=== PATIENT | female | born 1935 | race Caucasian/White ===

== ENCOUNTER 2020-12-29 23:38 | Inpatient (IN) | payer OTHER, MEDICAID, SELFPAY ==
[~2020-12-29] VITALS: Ht 165.1 cm; Wt 79.4 kg
[2020-12-29 23:47] VITALS: BP 160/92
--- NOTE | 2020-12-29 23:47 | NUR ---
TO BED VIA WHEELCHAIR
--- NOTE | 2020-12-30 00:27 | NUR ---
PATIENT BIB FROM HOME C/O EPIGASTRIC PAIN THAT STARTED 5 HRS AGO. 10/10 PAIN RADIATING TO HER BACK FOR 5 HOURS THAT FEELS SHARP AND PRESSURE WITH CONSTANT PAIN. PATIENT WAS GIVEN ACID MONKEY TRAINER AND TOOK PAIN MEDICATIONS BUT PATIENT CANNOT RECALL WITH NO RELIEF. +N WITH NO ACTUAL VOMITING. DENIES SOB, FEVER, DIFFICULTY BREATHING, AND C/P. PATIENT DIMINISHED LUNG IN BILATERAL BASES. AAOX4. GCS15. pmh: dm, hysterectomy nka
[2020-12-30] MEDS ORDERED: MORPHINE SULFATE 4 MG/ML SYR IVP ONE (00:30)
[2020-12-30 02:42] LABS: HEMATOCRIT 45.9 % (36-48); HEMOGLOBIN 15.1 g/dL (12.0-16.0); MEAN CORPUSCULAR HEMOGLOBIN 31 pg (27-31); MEAN CORPUSCULAR HGB CONC 33 g/dL (33-37); MEAN CORPUSCULAR VOLUME 95.4 fL (80-94); PLATELET COUNT (AUTO) 154 K/uL (140-450); RED BLOOD CELL COUNT(AUTO) 4.82 MIL/uL (4.20-5.40); RED CELL DISTRIBUTION WIDTH 13.6 % (11.6-13.7); WHITE BLOOD COUNT (AUTO) 6.7 K/uL (4.8-10.8)
[2020-12-30 02:44] LABS: ALBUMIN 3.9 g/dL (3.4-5.0); ANION GAP 16.8 (8-16); ASPARTATE AMINOTRANSFERASE 227 U/L (15-37); CARBON DIOXIDE 24.4 mmol/L (21-32); CHLORIDE 102 mmol/L (98-107); CREATININE 0.9 mg/dL (0.6-1.3); GLUCOSE 171 mg/dL (74-106); POTASSIUM 3.2 mmol/L (3.5-5.1); SODIUM SERUM 140 mmol/L (136-145); TOTAL BILIRUBIN 2.5 mg/dL (0.0-1.0); UREA NITROGEN, BLOOD 12 mg/dL (7-18)
[2020-12-30 02:53] LABS: LYMPHOCYTES % (MANUAL) 2 % (20-46); MONOCYTES % (MANUAL) 1 % (5-12)
--- NOTE | 2020-12-30 03:27 | NUR ---
patient to [facility]
[2020-12-30] MEDS: POTASSIUM CHL 20 MEQ/NACL 0.9% 1,000 ML IV SCH ×2 (03:50→17:25)
[2020-12-30] MEDS ORDERED: metroNIDAZOLE 500 MG/NS PREMIX 100 ML IV SCH (04:50)
[2020-12-30] MEDS: NACL 0.9% 500 ML IV SCH ×5 (05:21→06:54)
--- NOTE | 2020-12-30 05:22 | NUR ---
0522- YARA CALLED TO ADMIT PT
[2020-12-30] MEDS ORDERED: cefTRIAXone 1,000 MG VIAL ONE (05:35)
[2020-12-30] MEDS ORDERED: DEXT 5% / NACL 0.9% 500 ML IV ONE (05:45)
[2020-12-30] MEDS ORDERED: MORPHINE SULFATE 2 MG/ML SYR IVP PRN ×2 (05:45→08:27)
--- NOTE | 2020-12-30 05:46 | NUR ---
patient admited med/surg hold 9
--- NOTE | 2020-12-30 07:06 | NUR ---
Pt report given to Martina CHONG. Transfer of care at this time.
--- NOTE | 2020-12-30 07:07 | NUR ---
REPORT RECEIVED FROM RUBI RN FOR CONTUNITY OF CARE
[2020-12-30] MEDS ORDERED: LORazepam 2 MG/ML VIAL IVP PRN (07:35)
[2020-12-30] MEDS ORDERED: MAG SULF 2000 MG/WATER PREMIX 50 ML IV PRN (07:35)
[2020-12-30] MEDS ORDERED: DOCUSATE SODIUM 100 MG GELCAP PO PRN (07:35)
--- NOTE | 2020-12-30 07:57 | NUR ---
PATIENT HAS BEEN SCREENED AND CATEGORIZED LOW NUTRITION RISK. PATIENT WILL BE SEEN WITHIN 7 DAYS OF ADMISSION. 01/03/[address]
--- NOTE | 2020-12-30 08:32 | NUR ---
Patient will be admitted to care of DR. LIVINGSTON. Admited to MED-SURG. Will go to room 110A. Belongings list completed. Report to ARLETTE BRUNSON. PT TAKEN TO ROOM 110A BY EMT LE
[2020-12-30] MEDS ORDERED: POTASSIUM CHLORIDE 40 MEQ, LIDOCAINE MPF 1% 25 MG in NACL 0.9% 250 ML IV SCH (10:00)
[2020-12-30] MEDS ORDERED: SEVOFLURANE 250 ML BTL INH ONE (10:45)
[2020-12-30] MEDS: PIPERACILLIN/TAZOBACTAM 3.375 GM in DEXTROSE 5% 50 ML IV SCH ×2 (11:45→18:25)
[2020-12-30 16:00] VITALS: BP 140/78
[2020-12-30] MEDS ORDERED: POTASSIUM CHL 20 MEQ/NACL 0.9% 1,000 ML IV ONE (17:03)
--- NOTE | 2020-12-30 19:25 | NUR ---
RECEIVED BEDSIDE REPORT FROM AM SHIFT RN. PT IS A&O X4, AMBULATORY, ON 2L NC. RT AC 20 G, SKIN INTACT, SAFETY MEASURES IN PLACE, CALL LIGHT WITHIN REACH. PT STABLE, WILL CONTINUE TO MONITOR.
--- NOTE | 2020-12-30 19:30 | NUR ---
GAVE REPORT TO NIGHT NURSE PT IS STABLE.
[2020-12-30 20:00] VITALS: BP 120/70
[2020-12-31] MEDS: PIPERACILLIN/TAZOBACTAM 3.375 GM in DEXTROSE 5% 50 ML IV SCH ×4 (00:27→18:03)
--- NOTE | 2020-12-31 00:27 | NUR ---
ADMINISTERED PTS SCHEDULED MED. INSERTED SECOND IV SITE ON THE RIGHT FOREARM 22G.
--- NOTE | 2020-12-31 03:30 | NUR ---
PT IS ASLEEP. NO SIGNS OF DISTRESS. SAFETY MEASURES IN PLACE. PT STABLE. WILL CONTINUE TO MONITOR.
[2020-12-31 04:00] VITALS: BP 117/83
--- NOTE | 2020-12-31 05:35 | NUR ---
PT AMBULATED TO THE BATHROOM. WANTED TO WASH HER HAIR, SO I PROVIDED SHAMPOO FOR HER. AMBULATED BACK TO BED. PT STABLE, NO SIGNS OF DISTRESS. PT STABLE. WILL CONTINUE TO MONITOR.
[2020-12-31 07:09] LABS: BASOPHILS % (AUTO) 0.3 % (0.0-2.0); EOSINOPHILS % (AUTO) 0.6 % (0.0-4.0); HEMATOCRIT 40.3 % (36-48); HEMOGLOBIN 13.3 g/dL (12.0-16.0); LYMPHOCYTES # (AUTO) 0.3 K/uL (2.5-16.5); LYMPHOCYTES % (AUTO) 4.7 % (20.5-51.1); MEAN CORPUSCULAR HEMOGLOBIN 31 pg (27-31); MEAN CORPUSCULAR HGB CONC 33 g/dL (33-37); MEAN CORPUSCULAR VOLUME 95.4 fL (80-94); MONOCYTES # (AUTO) 0.7 K/uL (0.8-1.0); MONOCYTES % (AUTO) 9.6 % (1.7-9.3); NEUTROPHILS # (AUTO) 5.9 K/uL (1.8-7.7); NEUTROPHILS % (AUTO) 84.8 % (42.2-75.2); PLATELET COUNT (AUTO) 130 K/uL (140-450); RED BLOOD CELL COUNT(AUTO) 4.22 MIL/uL (4.20-5.40); RED CELL DISTRIBUTION WIDTH 13.4 % (11.6-13.7)
[2020-12-31 07:33] LABS: ANION GAP 16.3 (8-16); CARBON DIOXIDE 23.5 mmol/L (21-32); CHLORIDE 107 mmol/L (98-107); CREATININE 0.8 mg/dL (0.6-1.3); GLUCOSE 115 mg/dL (74-106); POTASSIUM 3.8 mmol/L (3.5-5.1); SODIUM SERUM 143 mmol/L (136-145); UREA NITROGEN, BLOOD 10 mg/dL (7-18)
[2020-12-31 07:40] LABS: BILIRUBIN,DIRECT 4.1 mg/dL (0.0-0.3)
--- NOTE | 2020-12-31 07:44 | NUR ---
PASSED ON BEDSIDE REPORT TO AM SHIFT RN. PT STABLE.
[2020-12-31 08:00] VITALS: BP 137/83
--- NOTE | 2020-12-31 08:13 | NUR ---
REPORT RECEIVED FROM NIGHT NURSE PT IS ALERT ORIENTED X 4 VERBALLY RESPONSIVE DENIES PAIN AND DISCOMFORT. NO SOB NOTED AT THE MOMENT. PT CAME FOR ABDOMINAL PAIN NM HIDA GB WAS DONE YESTERDAY. PT IS ON LIQUID DIET. NASAL CANNULA ON 2 L. POC DISCUSSED WILL CONTINUE TO FOLLOW.
[2020-12-31] MEDS: ACETAMINOPHEN 325 MG TAB PO PRN (10:10)
[2020-12-31] MEDS: MORPHINE SULFATE 2 MG/ML SYR IVP PRN ×2 (16:56→20:59)
--- NOTE | 2020-12-31 19:25 | NUR ---
ENDORSED THE NIGHT NURSE FOR CONTINUITY OF CARE. PT IS STABLE.
--- NOTE | 2020-12-31 19:27 | NUR ---
RECEIVED BEDSIDE REPORT FROM AM SHIFT RN. PT ON 2L NC, SAFETY MEASURES IN PLACE, CALL LIGHT WITHIN REACH. SKIN IS INTACT. AMBULATORY WITH ASSISTANCE. PT STABLE. WILL CONTINUE TO MONITOR.
[2020-12-31 20:00] VITALS: BP 140/77
--- NOTE | 2020-12-31 20:10 | NUR ---
ASSISTED PT ON AMBULATING TO THE BATHROOM. MOBILITY IS SLIGHTLY LIMITED. NO SIGNS OF DISTRESS. WILL CONTINUE TO MONITOR.
--- NOTE | 2021-01-01 00:25 | NUR ---
PT TOOK OUT IV LINES THAT WERE PLACED. HER RATIONALE WAS THAT SHE NEEDED TO GO TO THE BATHROOM. PUT A NEW ONE IN ON THE RIGHT HAND 22G AND ADMINISTERED SCHEDULED MED. PT SEEMS A BIT DISORIENTATED. KEPT GETTING UP TO "CLEAN". ORIENTATED HER BACK TO BED. WILL CONTINUE TO MONITOR CLOSELY.
[2021-01-01] MEDS: PIPERACILLIN/TAZOBACTAM 3.375 GM in DEXTROSE 5% 50 ML IV SCH ×4 (00:45→17:47)
--- NOTE | 2021-01-01 02:05 | NUR ---
PATIENT IS ASLEEP. NO SIGNS OF DISTRESS. SAFETY MEASURES IN PLACE, ON 2L NC. PT STABLE. WILL CONTINUE TO MONITOR.
[2021-01-01 04:00] VITALS: BP 117/83
[2021-01-01 06:56] LABS: BASOPHILS % (AUTO) 0.3 % (0.0-2.0); EOSINOPHILS % (AUTO) 0.6 % (0.0-4.0); HEMOGLOBIN 13.2 g/dL (12.0-16.0); LYMPHOCYTES # (AUTO) 0.5 K/uL (2.5-16.5); LYMPHOCYTES % (AUTO) 6.9 % (20.5-51.1); MEAN CORPUSCULAR HEMOGLOBIN 31 pg (27-31); MEAN CORPUSCULAR HGB CONC 33 g/dL (33-37); MEAN CORPUSCULAR VOLUME 94.8 fL (80-94); MONOCYTES # (AUTO) 0.8 K/uL (0.8-1.0); MONOCYTES % (AUTO) 10.9 % (1.7-9.3); NEUTROPHILS % (AUTO) 81.3 % (42.2-75.2); PLATELET COUNT (AUTO) 143 K/uL (140-450); RED BLOOD CELL COUNT(AUTO) 4.22 MIL/uL (4.20-5.40); RED CELL DISTRIBUTION WIDTH 13.6 % (11.6-13.7); WHITE BLOOD COUNT (AUTO) 7.4 K/uL (4.8-10.8)
--- NOTE | 2021-01-01 07:10 | NUR ---
PASSED ON BEDSIDE ENDORSEMENT TO AM SHIFT RN . PT ALFONSO.
[2021-01-01 07:35] LABS: ANION GAP 14.8 (8-16); CARBON DIOXIDE 24.9 mmol/L (21-32); CHLORIDE 106 mmol/L (98-107); CREATININE 0.7 mg/dL (0.6-1.3); GLUCOSE 125 mg/dL (74-106); POTASSIUM 3.7 mmol/L (3.5-5.1); SODIUM SERUM 142 mmol/L (136-145); UREA NITROGEN, BLOOD 4 mg/dL (7-18)
[2021-01-01 08:00] VITALS: BP 152/67
[2021-01-01] MEDS ORDERED: LIDOCAINE 2% 100 MG/5 ML SYR IVP ONE (14:15)
[2021-01-01] MEDS ORDERED: PROPOFOL 200 MG/20 ML VIAL IV ONE (14:15)
--- NOTE | 2021-01-01 15:03 | NUR ---
DC PLANNING: PATIENT ADMITTED THROUGH THE ED WITH DIFFUSE ABDOMINAL PAIN. SHE IS CURRENTLY BEING WORKED UP FOR CHOLECYSTITIS AND IS HAVING AN ERCP TODAY. ON ZOSYN IV AND MORPHINE IV PRN, ABDOMINAL US SHOWED SUSPECTED STONES OR SLUDGE IN THE GALLBLADDER, LIVER ENZYMES ARE ALSO ELEVATED. SHADY RECEIVED A CALL FROM RADHA ([phone])SHADY FOR [facility], VERBAL REVIEW GIVEN, CLINICAL INFORMATION FAXED PER HIS REQUEST. CM WILL FOLLOW UP WITH THE PATIENT FOR DC PLANNING NEEDS. Addendum: 01/02/21 at 1053 by Kay Arriaza CM DC PLANNING: CM SPOKE WITH THE PATIENTS FOSTER ROSS BY PHONE REGARDING DC PLANNING. CM CONFIRMED THE PATIENTS ADDRESS AND PHONE NUMBER PER THE FACE SHEET.THE PATIENT LIVES WITH HER SON IN A SINGLE STORY [facility], AND IS INDEPENDENT IN ALL ACTIVITIES INCLUDING ADL'S. THE PATIENTS WALKS 3-4 MILES A DAY, AND EITHER WALKS OR TAKES THE BUS TO SHOP OR DO ERRANDS. SHE SEES HER PCP EVERY 3 MONTHS, AND HAS NO H/O DME USE OR HOME HEALTH. THE PATIENTS SON IS CURRENTLY IN REHAB AND PER CODY THE PATIENT WAS TAKING CARE OF HIM. THE PATIENT IS SCHEDULED FOR A LAP MOMO TODAY, DC PLAN IS FOR THE PATIENT TO GO TO HER GRANDSON CODY RUBIO, ADDRESS [id number]. CM WILL FOLLOW FOR NEEDS. Addendum: 01/02/21 at 1113 by Lizbeth Solis CM LATE ENTRY VISIT WITH PATIENT ON 01/01/2021 PATIENT IS AN 85-YEAR-OLD FEMALE ADMITTED ON A 12/30/2020 IN THE [facility] ED DUE TO ABDOMINAL PAIN THAT IS GOT WORSE AND PATIENT REPORTS THAT RADIATES TO HER BACK. SW MET WITH PATIENT AT BEDSIDE TO DISCUSS AND GATHER HER COLLATERAL INFORMATION. (PATIENT IS [place]ELAN SPEAKING ONLY). PATIENT REPORTED LIVING AT HER OWN HOME WITH HER SON SONIA HAMILTON TEMPORARILY HOWEVER; HER SON CODY HERNANDEZ IS HIS EMERGENCY CONTACT AND ASSIST HER WITH HER NEEDS. PER PATIENT SHE DO NOT HAVE AN EXISTING ADVANCE DIRECTIVE IN PLACE NOW HOWEVER; WAS INTERESTED ON GETTING INFORMATION AND A.D. PACKET PROVIDED BY [facility] AT TIME OF VISIT. PER PATIENT SHE WILL TALK TO HER FAMILY AND WILL PROBABLY HAVE HER GRANDSON CODY HERNANDEZ HER MEDICAL DECISION MAKER IN THE FUTURE. PATIENT REPORTED BEEN VERY ACTIVE AT HOME AND GOING TO WALKS TO THE PARK BY HER HOME AT LEAST 2X A WEEK. PATIENT REPORTED THAT SHE IS IN CONTACT AND FOLLOWS UP WITH HER PCP REGULARLY. HER [facility] WITH MD JOAN ALLEN. PATIENT REPORTED THAT SHE WILL MAKE AN APPOINTMENT SOON AFTER HER DC FROM [facility]. PATIENT REPORTED NOT HAVING ANY ISSUES GETTING OR TAKING HER MEDICATIONS PRESCRIBED BY HER MD. REPORTED BEEN INDEPENDENT AND MOBIL AND NOT NEEDING ANY DME AT HOME SHE IS INDEPENDENT AND SOME TIMES SHE STILL TAKES THE BUS. PATIENT REPORTED THAT SHE WILL BE RETURNING BACK HOME AFTER HER DISCHARGE FROM [facility] AND PROBABLY HER SON SONIA OR GRANDSON CODY WILL BE PICKING HER UP FROM [facility]. SW WILL FOLLOW UP NEEDED. Addendum: 01/02/21 at 1351 by Kay Arriaza CM DC PLANNING: SHADY SPOKE WITH SHADY GARCIA FROM [facility] [employer], VERBAL REVIEW GIVEN AND CLINICAL INFORMATION FAXED TO HIM. ENDORSED THAT THE PATIENT IS HAVING A LAP MOMO TODAY. CM WILL FOLLOW FOR NEEDS. Addendum: 01/04/21 at 1441 by Kay Arriaza CM DC PLANNING: SHADY SPOKE WITH RADHA FROM [employer], ENDORSED THAT HOME HEALTH HAS BEEN ORDERED. GIVEN OPTION OF [facility], PHONE [phone]. REFERRAL FAXED, AGENCY ABLE TO SEE THE PATIENTRADHA TO ISSUE AUTH NUMBER TO [employer]. SHADY ALSO SPOKE WITH THE PATIENTS FOSTER ROSS, CONFIRMED THAT THE PATIENT WILL DISCHARGE TO HIS RESIDENCE, CM CONFIRMED THE ADDRESS. DR WHITE IN AT 1420 TO DC THE СЕРГЕЙ DRAIN. CM WILL FOLLOW FOR NEEDS. Addendum: 01/05/21 at 1206 by Kay Arriaza CM DC PLANNING: CM RECEIVED ORDERS FOR HOME O2, SPOKE WITH SHADY SANCHEZ AT [facility], ASKED TO SEND REFERRAL TO THEIR CONTRACTED VENDOR [email or web address]. AUTH# FOR O2 PER [facility] IS [id number]. [facility] THAT THEY START SERVICE TOMORROW ([phone]), THEIR AUTH # IS [id number]. CM ALSO SPOKE WITH THE PATIENTS GRANDSON TO LET HIM KNOW THAT [email or web address] WILL CALL HIM WITH A DELIVERY TIME FOR CONCENTRATOR AND PORTABLE O2. CM WILL FOLLOW FOR NEEDS. Addendum: 01/05/21 at 1357 by Kay Arriaza CM DC PLANNING: CM RECEIVED A CALL FROM TABITHA AT [email or web address] ([phone]), THEY WILL DELIVER THE O2 CONCENTRATOR TO THE PATIENTS GRANDSONS HOME, AND THE PORTABLE O2 SET UP TO THE BEDSIDE. DELIVERY OF CONCENTRATOR WILL BE BETWEEN 4-8 PM AND PORTABLE O2 TO BEDSIDE BETWEEN 3-7. CM LET THE PATIENTS GRANDSON CODY KNOW ABOUT THE DELIVERY TIMES AND THE PATIENTS RN SUYAPA. CM WILL FOLLOW FOR NEEDS.
[2021-01-01] MEDS ORDERED: LACTATED RINGERS 1,000 ML IV SCH (15:25)
[2021-01-01] MEDS ORDERED: HYDROmorphone 1 MG/ML AMP IVP PRN (15:25)
[2021-01-01] MEDS ORDERED: MEPERIDINE 25 MG/ML SYR IVP PRN (15:25)
[2021-01-01] MEDS ORDERED: ONDANSETRON 4 MG/2 ML VIAL IVP PRN (15:25)
[2021-01-01] MEDS: MORPHINE SULFATE 2 MG/ML SYR IVP PRN (19:03)
[2021-01-01 20:00] VITALS: BP 145/82
--- NOTE | 2021-01-01 20:09 | NUR ---
0710 AM: PATIENT IS RESTING IN BED QUIETLY. NO ADDITIONAL DISTRESS NOTED. CALL LIGHT WITHIN REACH. BED IN LOW AND LOCK POSITION. STABLE CONDITION. NPO AT THIS TIME. WILL CONT TO MONITOR. 0800AM: EXPLAINED PLAN OF CARE AND PATIENT VERBALIZED UNDERSTANDING. PATIENT SPEAKS LITTLE ERITREAN BUT ABLE TO MAKE NEEDS KNOWN. WILL CONT TO MONITOR. 1000AM: PATIENT IS WATCHING TV. NO ADDITIONAL DISTRESS NOTED. MANOLO CALLED AND SPOKE WITH PATIENT AND EXPLAINED TO HER WHAT WAS GOING ON TODAY. WILL CONT TO MONITOR. 1200PM: PATIENT IS SITTING AT THE SIDE OF THE BED. NO ADDITIONAL DISTRESS NOTED. WAITING FOR ETA FOR ERCP TODAY. CONSENT RECEIVED FROM LOUISE ROSS FOR ERCP. WILL CONT TO MONITOR. 1400: PATIENT IS WATCHING TV. NO ADDITIONAL DISTRESS NOTED. WILL CONT TO MONITOR. 1415: LEFT THE UNIT IN A STABLE CONDITION FOR ERCP. 1545: RETURN FROM ERCP. AAOX4, ABLE TO MAKE NEEDS KNOWN. NO ADDITIONAL DISTRESS NOTED. VS 169/75, 65, 98.4 T, 02 SAT 94% 2LNC, 18 RESP. WILL CONT TO MONITOR. 1600: VS: 154/86, 18 RESP, 65 HR, 98.4 T, 02 SAT 94 2L NC. 1800: PATIENT IS SITTING AT THE SIDE OF THE BED EATING HER DINNER. DAUGHTER IN LAW AT THE BEDSIDE. NO ADDITIONAL DISTRESS NOTED. WILL CONT TO MONITOR. 1830: PATIENT IS BED SLOWLY EATING HER DINNER. NO ADDITIONAL DISTRESS NOTED. WILL CONT TO MONITOR. 1903: C/O ABD PAIN AFTER EATING 8/10 ACHING PAIN. GAVE MORPHINE ORDER PRN.
[2021-01-01] MEDS: ONDANSETRON 4 MG/2 ML VIAL IVP PRN (20:19)
[2021-01-02] MEDS: ZOLPIDEM 10 MG TAB PO PRN ×2 (00:05→23:20)
[2021-01-02] MEDS: PIPERACILLIN/TAZOBACTAM 3.375 GM in DEXTROSE 5% 50 ML IV SCH ×4 (00:05→23:20)
--- NOTE | 2021-01-02 01:56 | NUR ---
the patient is NPO after midnight for possible laparoscopic cholecystectomy. she complained of nausea and vomiting. zofran was given , she sleeps comfortable in his bed. safety and comfort measures were provided. bed is low position , pateint was assited to the bathroom three times.
[2021-01-02 05:13] VITALS: BP 125/78
[2021-01-02 08:00] VITALS: BP 168/80
[2021-01-02 09:02] LABS: BASOPHILS % (AUTO) 0.3 % (0.0-2.0); EOSINOPHILS % (AUTO) 0.6 % (0.0-4.0); HEMATOCRIT 43.9 % (36-48); HEMOGLOBIN 14.9 g/dL (12.0-16.0); LYMPHOCYTES # (AUTO) 0.8 K/uL (2.5-16.5); LYMPHOCYTES % (AUTO) 11.2 % (20.5-51.1); MEAN CORPUSCULAR HEMOGLOBIN 32 pg (27-31); MEAN CORPUSCULAR HGB CONC 34 g/dL (33-37); MONOCYTES # (AUTO) 0.8 K/uL (0.8-1.0); MONOCYTES % (AUTO) 10.3 % (1.7-9.3); NEUTROPHILS # (AUTO) 5.7 K/uL (1.8-7.7); NEUTROPHILS % (AUTO) 77.6 % (42.2-75.2); PLATELET COUNT (AUTO) 180 K/uL (140-450); RED BLOOD CELL COUNT(AUTO) 4.72 MIL/uL (4.20-5.40); RED CELL DISTRIBUTION WIDTH 13.3 % (11.6-13.7); WHITE BLOOD COUNT (AUTO) 7.4 K/uL (4.8-10.8)
[2021-01-02 09:22] LABS: ANION GAP 12.1 (8-16); CARBON DIOXIDE 29.2 mmol/L (21-32); CHLORIDE 103 mmol/L (98-107); CREATININE 0.7 mg/dL (0.6-1.3); GLUCOSE 94 mg/dL (74-106); POTASSIUM 3.3 mmol/L (3.5-5.1); SODIUM SERUM 141 mmol/L (136-145); UREA NITROGEN, BLOOD 8 mg/dL (7-18)
--- NOTE | 2021-01-02 10:37 | NUR ---
0710 am: PATIENT IS RESTING IN BED QUIETLY. NPO SINCE MIDNIGHT. NO ADDITIONAL DISTRESS NOTED. CALL LIGHT WITHIN REACH. BED IN LOW AND LOCK POSITION. STABLE CONDITION AT THIS TIME. WILL CONT TO MONITOR. 0800 AM: EXPLAINED PLAN OF CARE AND PATIENT VERBALIZED UNDERSTANDING. PATIENT DOES NOT SEEM HAPPY OF YESTERDAY. PER PATIENT, SHE THOUGHT SHE WAS GOING HOME TODAY. BUT SHE HAS TO STAY FOR THE SURGERY. PATIENT ASSUME THE ERCP WAS THE SURGERY ITSELF. NO ADDITIONAL DISTRESS NOTED. WILL CONT TO MONITOR. 0830AM: ASSIST PATIENT WITH AM CARE. CHG BATH AND BRUSHING HER TEETH. BED LINEN AND GOWN CHANGED. 1000AM: PATIENT IS TALKING IN THE PHONE. NO ADDITIONAL DISTRESS NOTED. WILL CONT TO MONITOR. ' 1037AM: LEFT THE UNIT IN A STABLE CONDITION. OR TRANSFER PATIENT.
[2021-01-02] MEDS ORDERED: SUCCINYLCHOLINE CHLORIDE 200 MG/10 ML VIAL IVP ONE (10:46)
[2021-01-02] MEDS ORDERED: fentaNYL citrate 0.05 MG/ML VIAL ONE (10:46)
[2021-01-02] MEDS ORDERED: PROPOFOL 200 MG/20 ML VIAL IV ONE (10:47)
[2021-01-02] MEDS ORDERED: BUPIVACAINE-MPF/EPI 0.25% 30 ML VIAL INJ ONE (10:48)
[2021-01-02] MEDS ORDERED: ONDANSETRON 4 MG/2 ML VIAL ONE (11:14)
[2021-01-02] MEDS ORDERED: ePHEDrine 50 MG/ML VIAL ONE (11:14)
[2021-01-02] MEDS ORDERED: DEXAMETHASONE 4 MG/ML VIAL ONE (11:15)
[2021-01-02] MEDS ORDERED: PIPERACILLIN/TAZOBACTAM 3.375 GM VIAL IV ONE (11:26)
[2021-01-02] MEDS ORDERED: MEPERIDINE 25 MG/ML SYR IVP PRN (11:35)
[2021-01-02] MEDS ORDERED: diphenhydrAMINE 50 MG/ML VIAL IVP PRN (11:35)
[2021-01-02] MEDS: LACTATED RINGERS 1,000 ML IV SCH ×2 (11:35→21:15)
[2021-01-02] MEDS ORDERED: ONDANSETRON 4 MG/2 ML VIAL IVP PRN (11:35)
[2021-01-02] MEDS ORDERED: SUGAMMADEX SODIUM 200 MG/2 ML VIAL IV ONE (12:10)
[2021-01-02] MEDS ORDERED: MEPERIDINE 25 MG/ML SYR ONE (12:21)
[2021-01-02] MEDS ORDERED: HYDROmorphone PFS 2 MG/ML SYR ONE (13:05)
[2021-01-02] MEDS: HYDROmorphone 1 MG/ML AMP IVP PRN ×3 (13:08→13:28)
[2021-01-02 13:50] VITALS: BP 160/84
[2021-01-02 14:00] VITALS: BP 157/84
[2021-01-02 15:00] VITALS: BP 146/81
[2021-01-02 15:22] LABS: BILIRUBIN,DIRECT 4.5 mg/dL (0.0-0.3); TOTAL BILIRUBIN 5.5 mg/dL (0.0-1.0)
--- NOTE | 2021-01-02 17:00 | NUR ---
1350: PATIENT RETURNED FROM PACU. AAOX4, ABLE TO MAKE NEEDS KNOWN. PAIN TO ABD /10. PER PACU THEY ALREADY GAVE HER PAIN MEDICATION. NO ADDITIONAL DISTRESS NOTED. 1 СЕРГЕЙ DRAIN TO THE RUQ AND X3 ABD SITE SEALED WITH DERMABOUND. SURGICAL SITE IS C/D/I/ NO DRAINAGE NOTED. F/C DRAINING TO GRAVITY. TEA COLOR URINE NOTED. VS 160/84 KIMBERLY, 75 HR, 17 RESP, 96.8T. 1400: 02 SAT 93% TO 4LNC. 02 SAT DROPS IN ROOM AIR AT 83%. NO SOB NOTED. VS: 157/84 KIMBERLY, 74 HR, 17 RESP, 96.8 T, 02 SAT 94% 4LNC. 1415: VS: 142/79 KIMBERLY, 75 HR, 17 RESP, 96.8 T, 02 SAT 94% 4LNC. 1430: VS: 151/78 KIMBERLY, 75 HR, 17 RESP, 96.8 T, 02 SAT 94% 4LNC. 1445: SON AT THE BEDSIDE. PATIENT IS RESTING IN BED QUIETLY. WILL CONT TO MONITOR. VS: 147/82 KIMBERLY, 73 HR, 17 RESP, 97.8 T, 02 SAT 94% 4LNC. 1500: VS: 146/81 KIMBERLY, 71 HR, 17 RESP, 97.8 T, 02 SAT 94% 4LNC. 1600: PATIENT IS RESTING IN BED TALKING IN THE PHONE. SON AT THE BEDSIDE ACCOMPANYING HER. WILL CONT TO MONITOR. 1630: SON LEFT THE BEDSIDE. 1700: PATIENT IS ASLEEP. STABLE CONDITION. WILL CONT TO MONITOR.
--- NOTE | 2021-01-02 18:45 | NUR ---
1800: LOUISE ROSS AT THE BEDSIDE. PATIENT IS EATING HER DINNER. TOLERATED AT THE THIS TIME. NO ADDITIONAL DISTRESS NOTED. WILL CONT TO MONITOR. 1845: СЕРГЕЙ#1 30 SANGENOUS. LOUISE ROSS STILL AT THE BEDSIDE. NO ADDITIONAL DISTRESS NOTED. STABLE CONDITION THROUGHOUT THE SHIFT. F/C DRAINING TO GRAVITY. WILL CONT TO MONITOR.
[2021-01-02] MEDS ORDERED: POTASSIUM CHLORIDE 10 MEQ TABER PO SCH (19:25)
[2021-01-02 20:00] VITALS: BP 139/81
[2021-01-03 04:40] VITALS: BP 142/78
[2021-01-03] MEDS: LACTATED RINGERS 1,000 ML IV SCH (04:40)
[2021-01-03] MEDS: PIPERACILLIN/TAZOBACTAM 3.375 GM in DEXTROSE 5% 50 ML IV SCH ×2 (06:24→11:22)
[2021-01-03 06:59] LABS: BASOPHILS % (AUTO) 0.2 % (0.0-2.0); EOSINOPHILS % (AUTO) 0.1 % (0.0-4.0); HEMATOCRIT 39.4 % (36-48); HEMOGLOBIN 13.3 g/dL (12.0-16.0); LYMPHOCYTES # (AUTO) 0.7 K/uL (2.5-16.5); LYMPHOCYTES % (AUTO) 7.5 % (20.5-51.1); MEAN CORPUSCULAR HEMOGLOBIN 31 pg (27-31); MEAN CORPUSCULAR HGB CONC 34 g/dL (33-37); MEAN CORPUSCULAR VOLUME 93.2 fL (80-94); MONOCYTES # (AUTO) 0.8 K/uL (0.8-1.0); MONOCYTES % (AUTO) 9.4 % (1.7-9.3); NEUTROPHILS # (AUTO) 7.3 K/uL (1.8-7.7); NEUTROPHILS % (AUTO) 82.8 % (42.2-75.2); PLATELET COUNT (AUTO) 189 K/uL (140-450); RED BLOOD CELL COUNT(AUTO) 4.23 MIL/uL (4.20-5.40); RED CELL DISTRIBUTION WIDTH 13.3 % (11.6-13.7); WHITE BLOOD COUNT (AUTO) 8.8 K/uL (4.8-10.8)
[2021-01-03 07:08] LABS: ALBUMIN 2.4 g/dL (3.4-5.0); ANION GAP 10.7 (8-16); ASPARTATE AMINOTRANSFERASE 122 U/L (15-37); CARBON DIOXIDE 29.1 mmol/L (21-32); CHLORIDE 103 mmol/L (98-107); CREATININE 0.6 mg/dL (0.6-1.3); GLUCOSE 107 mg/dL (74-106); POTASSIUM 3.8 mmol/L (3.5-5.1); SODIUM SERUM 139 mmol/L (136-145); TOTAL BILIRUBIN 3.3 mg/dL (0.0-1.0); UREA NITROGEN, BLOOD 11 mg/dL (7-18)
--- NOTE | 2021-01-03 07:30 | NUR ---
BEDSIDE REPORT RECEIVED FROM CIVIL DRAFTSMAN. PATIENT RESTING. ALL SAFETY MEASURE SIN PLACE.
--- NOTE | 2021-01-03 09:26 | NUR ---
PT ASSISTED WITH MEAL TRAY SET UP, PT TOLERATED WELL
[2021-01-03] MEDS: MORPHINE SULFATE 2 MG/ML SYR IVP PRN (09:56)
--- NOTE | 2021-01-03 09:59 | NUR ---
PATIENT COMPLAINS OF 10/ 10 PRN MEDICATION GIVEN PER MD ORDER. PT EDUCATED VERBALIZED UNDERSTANDING.
[2021-01-03] MEDS: ACETAMINOPHEN 325 MG TAB PO PRN (11:22)
[2021-01-03 12:00] VITALS: BP 165/83
--- NOTE | 2021-01-03 12:30 | NUR ---
MEDICATIONS GIVEN PER MD ORDER. PT EDUCATED , PT VERBALIZED UNDERSTANDING PT ABLE TO MAKE NEEDS KNOWN. CALL LIGHT WITHIN REACH ALL SAFETY MEASURES ARE IN PLACE.
--- NOTE | 2021-01-03 19:14 | NUR ---
PT SEEN AND ASSESSED. FOUND PT ON ROOM AIR WITH SPO2 IN 80s%. PLACED PT ON O2 AND TITRATED IT TO 4L WITH SPO2 92%. PT IS IN NO RESPIRATORY DISTRESS. WILL CONTINUE TO MONITOR PT.
[2021-01-04 01:27] VITALS: BP 146/81
--- NOTE | 2021-01-04 03:46 | NUR ---
the patient was assessed . she had episode of insomnia. Ambien was administered.she sleeps comfortable in her bed, breathing is even and unlabored . comfort and safety measures were provided.
[2021-01-04 07:17] LABS: BASOPHILS % (AUTO) 0.6 % (0.0-2.0); EOSINOPHILS # (AUTO) 0.1 K/uL (0-0.4); EOSINOPHILS % (AUTO) 1.2 % (0.0-4.0); HEMATOCRIT 40.4 % (36-48); HEMOGLOBIN 13.4 g/dL (12.0-16.0); LYMPHOCYTES # (AUTO) 0.8 K/uL (2.5-16.5); LYMPHOCYTES % (AUTO) 9.1 % (20.5-51.1); MEAN CORPUSCULAR HEMOGLOBIN 31 pg (27-31); MEAN CORPUSCULAR HGB CONC 33 g/dL (33-37); MEAN CORPUSCULAR VOLUME 93.9 fL (80-94); MONOCYTES # (AUTO) 0.8 K/uL (0.8-1.0); NEUTROPHILS # (AUTO) 6.9 K/uL (1.8-7.7); NEUTROPHILS % (AUTO) 80.1 % (42.2-75.2); PLATELET COUNT (AUTO) 217 K/uL (140-450); RED CELL DISTRIBUTION WIDTH 13.5 % (11.6-13.7); WHITE BLOOD COUNT (AUTO) 8.7 K/uL (4.8-10.8)
[2021-01-04 07:21] LABS: ALBUMIN 2.5 g/dL (3.4-5.0); ANION GAP 7.2 (8-16); ASPARTATE AMINOTRANSFERASE 86 U/L (15-37); CARBON DIOXIDE 31.7 mmol/L (21-32); CHLORIDE 104 mmol/L (98-107); CREATININE 0.7 mg/dL (0.6-1.3); GLUCOSE 98 mg/dL (74-106); SODIUM SERUM 140 mmol/L (136-145); TOTAL BILIRUBIN 2.4 mg/dL (0.0-1.0); UREA NITROGEN, BLOOD 8 mg/dL (7-18)
--- NOTE | 2021-01-04 07:30 | NUR ---
RECEIVED PATIENT CARE AND REPORT FROM [facility] NURSE. PATIENT RESTING HIGH FOWLERS IN BED. RESTING WITH EYES CLOSED. NO VISIBLE S/S OF DISTRESS, SOB, PAIN OR DISCOMFORT. ALL NEEDS HAVE BEEN MET AT THIS TIME.
[2021-01-04 07:39] LABS: POTASSIUM 2.9 mmol/L (3.5-5.1)
[2021-01-04] MEDS: POTASSIUM CHLORIDE 10 MEQ TABER PO PRN ×2 (09:05→13:17)
[2021-01-04] MEDS: MORPHINE SULFATE 2 MG/ML SYR IVP PRN (09:55)
[2021-01-04] MEDS: ONDANSETRON 4 MG/2 ML VIAL IVP PRN (10:00)
--- NOTE | 2021-01-04 13:17 | NUR ---
SPOKE WITH DR. LIVINGSTON. PATIENT POTASSIUM 2.9 WITH AM LABS. STATED TO GIVE KDUR 40MEQ IN THE MORNING AND AT 1200 FOR A TOTAL OF 80MEQ FOR THE DAY.
--- NOTE | 2021-01-04 14:10 | NUR ---
RIGHT SIDE СЕРГЕЙ DRAIN REMOVED BY SURGEON. 30ML OF SEROSANGUINOUS FLUID. SKIN AT SITE INTACT WITHOUT SWELLING, HEAT OR REDNESS.
[2021-01-04] MEDS: amLODIPine 5 MG TAB PO SCH (14:29)
[2021-01-04] MEDS ORDERED: DOCU-299 PO (14:34)
[2021-01-04] MEDS ORDERED: AMLO-3 PO (14:34)
[2021-01-04] MEDS ORDERED: ACET-9527 PO (14:38)
--- NOTE | 2021-01-04 17:07 | NUR ---
PATIENT HAS DISCHARGE ORDER. HOWEVER, O2 SATURATION BETWEEN 85-88% ON ROOM AIR. ON 6L/MIN VIA NASAL CANNULA, O2 SATURATION 92-94%. CONTACTED YUMIKO RN DISEASE MANAGEMENT TO INFORM. WILL INFORM DOCTOR AND FOSTER ROSS.
--- NOTE | 2021-01-04 17:15 | NUR ---
CALLED FOSTER ROSS AND INFORMED ABOUT HOLD ON DISCHARGE.
--- NOTE | 2021-01-04 19:16 | NUR ---
RECEIVED BEDSIDE REPORT FROM AM SHIFT RN. PT IS A&O X3, NO IV FLUIDS RUNNING AT THE MOMENT. PT HAS A RIGHT HAND 20G. SKIN IS INTACT. ON 5L NC, O2 SAT 94% CURRENTLY. SAFETY MEASURES IN PLACE, CALL LIGHT WITHIN REACH. PT STABLE. WILL CONTINUE TO MONITOR.
--- NOTE | 2021-01-04 19:56 | NUR ---
PT SEEN AND ASSESSED. FOUND PT ON 6L NASAL CANNULA WITH SPO2 OF 92%. PT IS IN NO RESPIRATORY DISTRESS AT THIS TIME. WILL CONTINUE TO MONITOR PT.
[2021-01-04 20:00] VITALS: BP 128/72
--- NOTE | 2021-01-05 00:10 | NUR ---
PROVIDED INCENTIVE SPIROMETER AT BEDSIDE. EDUCATED PATIENT ON HOW TO USE INCENTIVE SPIROMETER AND ALSO EDUCATED THAT THIS WILL OPEN UP THE LUNGS TO HELP BREATH MORE EFFECTIVELY
[2021-01-05] MEDS: ZOLPIDEM 10 MG TAB PO PRN (00:24)
--- NOTE | 2021-01-05 00:24 | NUR ---
PT STATED SHE HAS A HARD TIME SLEEPING. PROVIDED RENATA RODRIGUEZ.
--- NOTE | 2021-01-05 02:31 | NUR ---
PATIENT IS ASLEEP, NO SIGNS OF DISTRESS, OBSERVATION OF CHEST RISE AND FALL. SAFETY MEASURES IN PLACE. PT STABLE. WILL CONTINUE TO MONITOR
[2021-01-05 04:00] VITALS: BP 120/79
--- NOTE | 2021-01-05 07:30 | NUR ---
Received report from pm nurse. Patient resting in bed, respirations even & nonlabored on O2 @ 5L/min via n/c. IV to right hand 20G intact and asymptomatic, saline lock. Bed alarm on.
--- NOTE | 2021-01-05 07:36 | NUR ---
PASSED ON BEDSIDE REPORT TO AM SHIFT RN. PT STABLE
[2021-01-05 08:00] VITALS: BP 115/79
--- NOTE | 2021-01-05 08:22 | NUR ---
Received call from Eliseo Jalloh from [facility] [phone] inquiring of patient's discharge plan. Informed Eliseo that patient requires home O2. Will notify hospital case management director to coordinate with Eliseo recinos: discharge needs.
[2021-01-05] MEDS: amLODIPine 5 MG TAB PO SCH (09:04)
--- NOTE | 2021-01-05 09:30 | NUR ---
PLACED PT ON ROOM AIR, SPO2 86%. Addendum: 01/05/21 at 0953 by Sophia Mcelroy RT THEN PLACED PT BACK ON 3L, SPO2 92%
--- NOTE | 2021-01-05 13:38 | NUR ---
01/05/21 RD INITIAL ASSESSMENT COMPLETED PLEASE REFER TO NUTRITION ASSESSMENT UNDER CARE ACTIVITY FOR ESTIMATED NUTRITIONAL NEEDS. 1. CONTINUE CARDIAC DIET TOLERATED 2. RD TO FOLLOW-UP 3-5 DAYS, MODERATE RISK REVIEWED BY NICOLASA KIM RD
--- NOTE | 2021-01-05 17:50 | NUR ---
Received delivery of portable O2 tank. Called patient's grandson Kristofer and confirmed that O2 concentrator has been delivered at home. Per Kristofer, he will come in about 1 hr to warehouse order picker the patient.
--- NOTE | 2021-01-05 19:00 | NUR ---
osman Miner arrived to chicken picker patient. Patient discharged with O2 @ 3L/min, left unit via wheelchair. Able to ambulate 3ft from wheelchair to car with standby assist. All belongings with patient upon departure.
== END 2021-01-05 19:10 | disposition home or self-care (01) | DRG 853 ==
LOC: MED 23:38 → MTU 12-30 05:46
PROVIDERS: ADMIT General Practice; ATTEND General Practice
PROC: 0F798ZZ Dilation of Common Bile Duct, Via Natural or Artificial Opening Endoscopic (ICD-10-PCS; 2021-01-01)
PROC: BF101ZZ Fluoroscopy of Bile Ducts using Low Osmolar Contrast (ICD-10-PCS; 2021-01-01)
PROC: 0F9440Z Drainage of Gallbladder with Drainage Device, Percutaneous Endoscopic Approach (ICD-10-PCS; 2021-01-02)
PROC: 0FT44ZZ Resection of Gallbladder, Percutaneous Endoscopic Approach (ICD-10-PCS; principal; 2021-01-02 10:30)
DX: A41.9 Sepsis, unspecified organism (principal); K85.10 Biliary acute pancreatitis without necrosis or infection; E87.2 Acidosis; K82.1 Hydrops of gallbladder; K80.12 Calculus of gallbladder with acute and chronic cholecystitis without obstruction; E87.6 Hypokalemia; R74.01 Elevation of levels of liver transaminase levels; L80 Vitiligo; Z20.822 Contact with and (suspected) exposure to COVID-19; I10 Essential (primary) hypertension; Z90.710 Acquired absence of both cervix and uterus
CPT/HCPCS: 36415; 71045; 74330; 76700; 76705; 77003; 78445; 80048; 80053; 80076; 82374; 83036; 83605; 83690; 83735; 84484; 85025; 88304; 93005; 93970; 96365; 96367; 96375; 97110; 97116; 97163-GP; 97530; 99285; C1769; C1773; J0330; J0696; J1100; J1170; J2001; J2175; J2270; J2405; J2543; J2704; J3010; J3480; J3490; J7030; J7060; J7120; Q0092; Q9967